=== PATIENT | female | born 1985 | race Two or more races ===

== ENCOUNTER → 2018-04-14 | Emergency (ER) | payer OTHER ==
[~2018-04-14] VITALS: Ht 162.6 cm; Wt 81.6 kg
[~2018-04-14] MED LIST: CEFUROXIME500 MG PO; DOLOGESIC CAPLE1 TAB PO; FOLIC ACID1 MG; KEFLEX500 MG PO; KETO10TA2 PO; LOTRISONE LOTIO30 ML TP; MEDROLPACK PO; NEURONTIN300 MG PO; NIFEDIPINE ER30 M1 PO; PR NATAL 400 C1 EACH; URIN D.S. TABL1 EACH PO
== END | disposition home or self-care (01) ==
LOC: ER 23:54
DX: N39.0 Urinary tract infection, site not specified (principal)

== ENCOUNTER 2018-05-10 10:11 | Emergency (ER) | payer OTHER ==
[~2018-05-10] VITALS: Ht 162.6 cm; Wt 90.7 kg
== END 2018-05-10 14:51 | disposition home or self-care (01) ==
LOC: ER 10:11
DX: O26.851 Spotting complicating pregnancy, first trimester (principal); Z34.01 Encounter for supervision of normal first pregnancy, first trimester

== ENCOUNTER 2021-05-20 09:01 | Emergency (ER) | payer OTHER ==
[~2021-05-20] VITALS: Ht 162.6 cm; Wt 90.7 kg
[2021-05-20] MEDS ORDERED: COZAAR50 MG (10:30)
== END 2021-05-20 14:05 | disposition home or self-care (01) ==
LOC: ER 09:01
DX: Z20.822 Contact with and (suspected) exposure to COVID-19 (principal)

== ENCOUNTER → 2022-01-05 | Emergency (ER) | payer OTHER ==
[~2022-01-05] VITALS: Ht 162.6 cm; Wt 104.3 kg
[~2022-01-05] MED LIST changes: +COZAAR50 MG; +NORFLEX100MG PO
== END | disposition home or self-care (01) ==
LOC: ER 07:52
DX: M25.511 Pain in right shoulder (principal); Z86.79 Personal history of other diseases of the circulatory system

== ENCOUNTER 2022-03-28 00:40 | Emergency (ER) | payer OTHER ==
[~2022-03-28] VITALS: Ht 162.6 cm; Wt 99.8 kg
[2022-03-28] MEDS ORDERED: ZESTRIL5 MG (00:56)
[2022-03-28] MEDS ORDERED: LOSARTAN-HCTZ1 EAC1 PO (22:11)
== END 2022-03-28 06:42 | disposition home or self-care (01) ==
LOC: ER 00:40
DX: I10 Essential (primary) hypertension (principal)

== ENCOUNTER 2022-03-28 18:50 | Emergency (ER) | payer OTHER ==
[~2022-03-28] VITALS: Ht 157.5 cm; Wt 92.5 kg
[~2022-03-28 18:50] MED LIST changes: +ZESTRIL5 MG
[2022-03-28] MEDS ORDERED: LOSARTAN-HCTZ1 EAC1 PO (22:11)
== END 2022-03-28 22:19 | disposition home or self-care (01) ==
LOC: ER 18:50
DX: I10 Essential (primary) hypertension (principal); R00.2 Palpitations

== ENCOUNTER 2023-02-24 03:19 | Emergency (ER) | payer OTHER ==
[~2023-02-24] VITALS: Ht 162.6 cm; Wt 81.6 kg
[~2023-02-24 03:19] MED LIST changes: +LOSARTAN-HCTZ1 EAC1 PO
[2023-02-24] MEDS ORDERED: CARDIZEM30 MG PO (03:56)
== END 2023-02-24 07:22 | disposition home or self-care (01) ==
LOC: ER 03:19
DX: R09.81 Nasal congestion (principal); I10 Essential (primary) hypertension

== ENCOUNTER 2023-10-22 19:34 | Emergency (ER) | payer OTHER ==
[~2023-10-22] VITALS: Ht 162.6 cm; Wt 95.3 kg
[~2023-10-22 19:34] MED LIST changes: +CARDIZEM30 MG PO
== END 2023-10-22 22:09 | disposition home or self-care (01) ==
LOC: ER 19:35
DX: R07.89 Other chest pain (principal); I10 Essential (primary) hypertension

== ENCOUNTER 2024-07-19 13:38 | Emergency (ER) | payer OTHER ==
[~2024-07-19] VITALS: Ht 162.6 cm; Wt 90.7 kg
[2024-07-19 15:24] LABS: HEMOGLOBIN 12.5 g/dL (12.0-15.00); MEAN CELL VOLUME 86.3 fL (80.00-100.00); MEAN CORPUSCULAR HEMOGLOBIN 28.5 pg (27.00-32.0); PLATELET COUNT 238 K/uL (150-450); RED CELL DISTRIBUTION WIDTH 13.5 % (11.5-14.5)
[2024-07-19 15:53] LABS: ALBUMIN 3.6 gm/dL (3.4-5.0); BILIRUBIN TOTAL 0.36 mg/dL (0.3-1.2); CALCIUM 9.2 mg/dL (8.5-10.1); CREATININE SERUM 0.91 mg/dL (0.55-1.02); GFR 69.18; GLOBULINA 3.1 G/DL (2.4-3.5); POTASSIUM 3.03 mEq/L (3.5-5.1); TOTAL PROTEIN 6.7 gm/dL (6.4-8.2)
== END 2024-07-19 16:24 | disposition home or self-care (01) ==
LOC: ER 13:40
PROVIDERS: General Practice
DX: E87.6 Hypokalemia (principal); I10 Essential (primary) hypertension

== ENCOUNTER 2024-10-19 22:38 | Emergency (ER) | payer OTHER ==
[~2024-10-19] VITALS: Ht 162.6 cm; Wt 90.7 kg
[2024-10-20] MEDS ORDERED: ONDANSETRON HCL 2 MG/ML VIAL IV STA (01:24)
[2024-10-20] MEDS ORDERED: FAMOTIDINE/PF 20 MG/2 ML VIAL IV PUSH STA (01:24)
[2024-10-20] MEDS ORDERED: MAG HYDROX/ALUMINUM HYD/SIMETH 30 ML BLIST.PACK PO STA (01:24)
[2024-10-20] MEDS ORDERED: SUCRALFATE 1 G TABLET PO STA (01:25)
[2024-10-20 02:45] LABS: HEMATOCRIT 36.7 % (36.0-45.00); HEMOGLOBIN 12.5 g/dL (12.0-15.00); MEAN CELL VOLUME 83.6 fL (80.00-100.00); MEAN CORPUSCULAR HEMOGLOBIN 28.6 pg (27.00-32.0); MEAN CORPUSCULAR HGB CONC 34.2 g/dl (32.0-36.0); PLATELET COUNT 240 K/uL (150-450); RED BLOOD COUNT 4.39 M/uL (4.00-6.00)
[2024-10-20 02:46] LABS: AMYLASE 40 U/L (25-115); LIPASE 29 U/L (13-75)
[2024-10-20] MEDS ORDERED: PEPCID40 MG PO (03:15)
[2024-10-20] MEDS ORDERED: ZOFRAN8 MG PO (03:15)
[2024-10-20] MEDS ORDERED: PROTONIX40 MG PO (03:15)
== END 2024-10-20 03:34 ==
LOC: ER 22:40
PROVIDERS: General Practice
DX: R10.13 Epigastric pain (principal); R10.9 Unspecified abdominal pain; I10 Essential (primary) hypertension

== ENCOUNTER 2024-10-24 02:29 | Inpatient (IN) | payer OTHER ==
[~2024-10-24] VITALS: Ht 167.6 cm; Wt 99.8 kg
[~2024-10-24 02:29] MED LIST changes: +PEPCID40 MG PO; +PROTONIX40 MG PO; +ZOFRAN8 MG PO
--- NOTE | 2024-10-24 02:54 | NUR ---
SE RECIBE PTE ALERTA Y ORIENTADA LA CUAL REFIERE VENIR POR DOLOR EPIGASTRICO Y CONSTIPACION DESDE HACE VARIOS WOODALL. SE MIDEN S/V A PTE Y SE UBICA.
[2024-10-24] MEDS ORDERED: PROMETHAZINE HCL 50 MG/ML AMPUL IM STA (03:45)
[2024-10-24] MEDS ORDERED: MEPERIDINE HCL/PF 25 MG/ML VIAL IM STA (03:45)
[2024-10-24] MEDS ORDERED: FAMOTIDINE/PF 20 MG/2 ML VIAL IV PUSH STA (03:45)
[2024-10-24 04:26] LABS: HEMATOCRIT 39.5 % (36.0-45.00); HEMOGLOBIN 13.3 g/dL (12.0-15.00); MEAN CELL VOLUME 83.5 fL (80.00-100.00); MEAN CORPUSCULAR HEMOGLOBIN 28.1 pg (27.00-32.0); MEAN CORPUSCULAR HGB CONC 33.7 g/dl (32.0-36.0); PLATELET COUNT 261 K/uL (150-450); RED BLOOD COUNT 4.73 M/uL (4.00-6.00); RED CELL DISTRIBUTION WIDTH 13.6 % (11.5-14.5)
[2024-10-24 05:01] LABS: INR 0.96; PARTIAL THROMBOPLASTIN TIME 28.4 SECONDS (22.0-34.0); PROTHROMBIN TIME 10.5 SECONDS (9.0-11.5)
[2024-10-24 05:05] LABS: ALBUMIN 3.9 gm/dL (3.4-5.0); ALKALINE PHOSPHATASE 84 U/L (50-136); ALT/SGPT 27 U/L (12-78); AMYLASE 34 U/L (25-115); ANION GAP 9 (10.0-20.0); AST/SGOT 17 U/L (15-37); BILIRUBIN TOTAL 0.59 mg/dL (0.3-1.2); BILIRUBIN,CONJUGATED 0.16 mg/dL (0.0-0.2); BILIRUBIN,UNCONJUGATED 0.43 mg/dL (0.0-0.6); BLOOD UREA NITROGEN 13 mg/dL (7-18); BUN CREA RATIO 14 (7.0-25.0); CALCIUM 9.4 mg/dL (8.5-10.1); CARBON DIOXIDE 30 mEq/L (21-32); CHLORIDE 104 mmol/L (98-107); CREATININE SERUM 0.92 mg/dL (0.55-1.02); GFR 68.32; GLOBULINA 3.4 G/DL (2.4-3.5); GLUCOSE FASTING 107 mg/dL (65-100); HCG QUANTITATIVE < 1 mUI/mL (1-3); LIPASE 27 U/L (13-75); OSMOLALITY SERUM 280 MOSM/KG (275-295); POTASSIUM 3.25 mEq/L (3.5-5.1); SODIUM 140 mmol/L (136-145); TOTAL PROTEIN 7.3 gm/dL (6.4-8.2)
--- NOTE | 2024-10-24 05:59 | NUR ---
SE REALIZA LABORATORIOS Y SE ADMIMISTRA TX. SE ORIENTA A PTE QUIEN REFIERE ENTENDER Y ACEPTAR
[2024-10-24] MEDS ORDERED: RINGERS SOLUTION,LACTATED 1,000 ML IV ONE (07:30)
[2024-10-24] MEDS ORDERED: CEFTRIAXONE SODIUM 1,000 MG VIAL IV STA (07:34)
--- NOTE | 2024-10-24 07:53 | NUR ---
SE RECIBE PTE FEMENINA DE 39 YRS ALERTA CONCIENTE Y TRAQUILA. PTE SE LE TATYANA MUESTRA DE ORINA Y SE LE COMIENZA EN ANTIBIOTICO. SE MANTIENE BAJO OBSERVACION.
[2024-10-24 08:14] LABS: PH,URINE 5.5 (5.0-8.0); URINE APPEARANCE Clear; URINE BILIRRUBIN Negative (NEGATIVE); URINE BLOOD Negative; URINE COLOR Yellow; URINE GLUCOSE Negative (NEGATIVE); URINE KETONE Negative (NEGATIVE); URINE LEUKOCYTE Negative; URINE NITRATE Negative; URINE PROTEIN Negative (NEGATIVE); URINE UROBILINOGEN 0.2 E.U./dl
[2024-10-24 08:15] LABS: URINE EPITHELIAL CELLS 59.8 uL (0.0-38.8); URINE WBC 46.2 uL (0.0-23.2)
[2024-10-24 08:18] LABS: URINE CAST 0.14 uL (0.0-1.40)
[2024-10-24] MEDS ORDERED: CEFTRIAXONE SODIUM 2,000 MG in 0.9 % SODIUM CHLORIDE 100 ML IV SCH (13:29)
[2024-10-24] MEDS ORDERED: MORPHINE SULFATE 4 MG/ML VIAL IV PRN (13:30)
[2024-10-24] MEDS ORDERED: ONDANSETRON HCL 4 MG in 0.9 % SODIUM CHLORIDE 50 ML IV PRN (13:30)
[2024-10-24] MEDS ORDERED: LOSARTAN/HYDROCHLOROTHIAZIDE 1 TAB TABLET PO SCH (13:30)
[2024-10-24] MEDS ORDERED: POTASSIUM CHLORIDE IN WATER 100 ML IV NR (13:30)
[2024-10-24] MEDS ORDERED: SODIUM CHLORIDE 0.45 % 1,000 ML IV SCH (13:45)
[2024-10-24] MEDS ORDERED: LOSARTAN/HYDROCHLOROTHIAZIDE 1 TAB TABLET PO NR (14:00)
[2024-10-24 18:54] VITALS: BP 143/68; O2SAT 100
[2024-10-24 20:35] LABS: ALBUMIN 3.6 gm/dL (3.4-5.0); BILIRUBIN TOTAL 0.5 mg/dL (0.3-1.2); CALCIUM 9.1 mg/dL (8.5-10.1); CREATININE SERUM 0.82 mg/dL (0.55-1.02); GFR 78.02; GLOBULINA 3.4 G/DL (2.4-3.5); POTASSIUM 3.39 mEq/L (3.5-5.1)
[2024-10-25 00:23] VITALS: BP 139/81; O2SAT 98
[2024-10-25 08:09] VITALS: BP 140/85; O2SAT 96
[2024-10-25] MEDS ORDERED: LOSARTAN/HYDROCHLOROTHIAZIDE 1 TAB TABLET PO SCH (09:00)
[2024-10-25] MEDS ORDERED: MORPHINE SULFATE 4 MG/ML CARTRIDGE IV PRN (14:15)
[2024-10-25 16:00] VITALS: BP 145/81; O2SAT 100
[2024-10-25] MEDS ORDERED: ONDANSETRON HCL 2 MG/ML VIAL IV PRN (17:00)
[2024-10-25] MEDS ORDERED: MORPHINE SULFATE 4 MG in 0.9 % SODIUM CHLORIDE 9 ML IV PRN (17:00)
[2024-10-25] MEDS ORDERED: MEPERIDINE HCL/PF 25 MG/ML VIAL IV PRN (17:00)
[2024-10-25] MEDS ORDERED: MORPHINE SULFATE 4 MG/ML VIAL IV ONE ×2 (18:15→18:45)
[2024-10-25 19:30] LABS: HEMATOCRIT 39.6 % (36.0-45.00); HEMOGLOBIN 13.1 g/dL (12.0-15.00); MEAN CELL VOLUME 85.2 fL (80.00-100.00); MEAN CORPUSCULAR HEMOGLOBIN 28.1 pg (27.00-32.0); PLATELET COUNT 248 K/uL (150-450); RED BLOOD COUNT 4.65 M/uL (4.00-6.00); RED CELL DISTRIBUTION WIDTH 13.5 % (11.5-14.5)
[2024-10-25 19:49] LABS: CALCIUM 9.3 mg/dL (8.5-10.1); CREATININE SERUM 0.76 mg/dL (0.55-1.02); GFR 85.17; POTASSIUM 3.34 mEq/L (3.5-5.1)
[2024-10-25] MEDS ORDERED: FAMOTIDINE/PF 20 MG/2 ML VIAL IV SCH (21:22)
[2024-10-25 23:58] VITALS: BP 142/86; O2SAT 98
[2024-10-26 08:00] VITALS: BP 152/89; O2SAT 98
[2024-10-26] MEDS ORDERED: ENALAPRILAT DIHYDRATE 1.25 MG/ML VIAL IV SCH (14:05)
[2024-10-26 16:00] VITALS: BP 113/78; O2SAT 95
[2024-10-27 00:27] VITALS: BP 149/83; O2SAT 98
[2024-10-27 08:00] VITALS: BP 142/83; O2SAT 99
[2024-10-27] MEDS ORDERED: ONDANSETRON 4 MG TAB.RAPDIS PO PRN (14:00)
[2024-10-27] MEDS ORDERED: TRAMADOL HCL 50 MG TABLET PO SCH (18:00)
== END 2024-10-27 13:20 | disposition home or self-care (01) | DRG 419 ==
LOC: ER 02:31 → SURH 13:48 → SEC-K 13:48 → SURH 15:54
PROVIDERS: General Practice; Surgery; ADMIT Student in an Organized Health Care Education/Training Program; ATTEND Student in an Organized Health Care Education/Training Program
PROC: BW40ZZZ Ultrasonography of Abdomen (ICD-10-PCS; 2024-10-24)
PROC: 0FT44ZZ Resection of Gallbladder, Percutaneous Endoscopic Approach (ICD-10-PCS; principal; 2024-10-25 16:30)
DX: K80.00 Calculus of gallbladder with acute cholecystitis without obstruction (principal)

== ENCOUNTER 2024-10-30 03:17 | Inpatient (IN) | payer OTHER ==
[~2024-10-30] VITALS: Ht 162.6 cm; Wt 90.7 kg
[2024-10-30] MEDS ORDERED: ONDANSETRON HCL 2 MG/ML VIAL IV ONE (03:45)
[2024-10-30] MEDS ORDERED: KETOROLAC TROMETHAMINE 30 MG VIAL IV ONE (03:45)
[2024-10-30] MEDS ORDERED: 0.9 % SODIUM CHLORIDE 1,000 ML IV SCH (03:45)
[2024-10-30] MEDS ORDERED: KETOROLAC TROMETHAMINE 60 MG VIAL IM ONE (04:03)
[2024-10-30] MEDS ORDERED: ONDANSETRON HCL 2 MG/ML VIAL ONE ×2 (04:03)
[2024-10-30 04:29] LABS: HEMATOCRIT 33.5 % (36.0-45.00); HEMOGLOBIN 11.6 g/dL (12.0-15.00); MEAN CELL VOLUME 82.9 fL (80.00-100.00); MEAN CORPUSCULAR HEMOGLOBIN 28.8 pg (27.00-32.0); MEAN CORPUSCULAR HGB CONC 34.7 g/dl (32.0-36.0); PLATELET COUNT 269 K/uL (150-450); RED BLOOD COUNT 4.04 M/uL (4.00-6.00); RED CELL DISTRIBUTION WIDTH 13.4 % (11.5-14.5)
[2024-10-30 04:43] LABS: ALBUMIN 3.2 gm/dL (3.4-5.0); ALKALINE PHOSPHATASE 90 U/L (50-136); ALT/SGPT 55 U/L (12-78); AMYLASE 29 U/L (25-115); ANION GAP 6 (10.0-20.0); AST/SGOT 27 U/L (15-37); BILIRUBIN TOTAL 0.45 mg/dL (0.3-1.2); BLOOD UREA NITROGEN 10 mg/dL (7-18); BUN CREA RATIO 13 (7.0-25.0); CARBON DIOXIDE 29 mEq/L (21-32); CHLORIDE 105 mmol/L (98-107); GFR 80.27; GLOBULINA 3.5 G/DL (2.4-3.5); GLUCOSE FASTING 102 mg/dL (65-100); OSMOLALITY SERUM 273 MOSM/KG (275-295); POTASSIUM 3.02 mEq/L (3.5-5.1); SODIUM 137 mmol/L (136-145); TOTAL PROTEIN 6.7 gm/dL (6.4-8.2)
[2024-10-30 05:17] LABS: PH,URINE 5.5 (5.0-8.0); URINE APPEARANCE Clear; URINE BILIRRUBIN Negative (NEGATIVE); URINE BLOOD Large; URINE COLOR Dark Yellow; URINE GLUCOSE Negative (NEGATIVE); URINE KETONE Trace (NEGATIVE); URINE LEUKOCYTE Small; URINE NITRATE Negative; URINE PROTEIN 30 (NEGATIVE)
[2024-10-30 05:21] LABS: URINE BACTERIA 79.5 uL (0.0-1933); URINE EPITHELIAL CELLS 40.9 uL (0.0-38.8); URINE WBC 89.8 uL (0.0-23.2)
[2024-10-30 05:26] LABS: BILIRUBIN,CONJUGATED < 0.10 mg/dL (0.0-0.2); BILIRUBIN,UNCONJUGATED 0.35 mg/dL (0.0-0.6)
[2024-10-30 05:27] LABS: LIPASE 35 U/L (13-75)
[2024-10-30] MEDS ORDERED: PIPERACILLIN/TAZOBACTAM SODIUM 3.375 GM in 0.9 % SODIUM CHLORIDE 100 ML IV SCH (07:12)
[2024-10-30] MEDS ORDERED: MEPERIDINE HCL/PF 50 MG/ML VIAL IM PRN (07:15)
[2024-10-30] MEDS ORDERED: ONDANSETRON HCL 2 MG/ML VIAL IV PRN (07:15)
[2024-10-30 14:00] VITALS: BP 136/82; O2SAT 100
[2024-10-30 16:28] VITALS: BP 117/78; O2SAT 96
[2024-10-31 00:29] VITALS: BP 100/58; O2SAT 98
[2024-10-31] MEDS ORDERED: FAMOTIDINE/PF 20 MG/2 ML VIAL IV SCH (09:00)
[2024-10-31] MEDS ORDERED: NICOTINE 21MG/24HR PATCH.TD24 TD SCH (09:00)
[2024-10-31] MEDS ORDERED: POTASSIUM BICARBONATE/CIT AC 25 MEQ TABLET.EFF PO SCH (09:00)
[2024-10-31 10:28] VITALS: BP 138/85; O2SAT 100
[2024-10-31 11:57] LABS: CALCIUM 8.4 mg/dL (8.5-10.1); CREATININE SERUM 0.69 mg/dL (0.55-1.02); GFR 95.22; MAGNESIUM 1.8 mg/dL (1.8-2.4); POTASSIUM 3.43 mEq/L (3.5-5.1)
[2024-10-31 17:00] VITALS: BP 153/88; O2SAT 100
[2024-11-01 01:27] VITALS: BP 139/77; O2SAT 99
[2024-11-01 08:42] VITALS: BP 117/77; O2SAT 95
[2024-11-01] MEDS ORDERED: LOSARTAN/HYDROCHLOROTHIAZIDE 1 UDTAB TABLET PO SCH (09:00)
[2024-11-01] MEDS ORDERED: fentaNYL CITRATE 50 MCG/ML AMPUL IV PUSH ONE (15:00)
[2024-11-01] MEDS ORDERED: MIDAZOLAM HCL 2 MG/2 ML VIAL IV PUSH ONE (15:00)
[2024-11-01 16:00] VITALS: BP 152/82; O2SAT 100
[2024-11-01 17:44] VITALS: BP 178/90; O2SAT 100
[2024-11-01] MEDS ORDERED: ACETAMINOPHEN 500 MG GEL..CAP PO PRN (18:45)
[2024-11-02 00:10] VITALS: BP 119/75; O2SAT 98
[2024-11-02 08:00] VITALS: BP 138/83; O2SAT 97
[2024-11-02] MEDS ORDERED: MORPHINE SULFATE 2 MG/ML CARTRIDGE IV PRN (10:36)
[2024-11-02 16:00] VITALS: BP 132/77; O2SAT 95
[2024-11-03 01:43] VITALS: BP 108/76; O2SAT 99
[2024-11-03 06:43] LABS: HEMATOCRIT 31.5 % (36.0-45.00); HEMOGLOBIN 10.6 g/dL (12.0-15.00); MEAN CELL VOLUME 84.1 fL (80.00-100.00); MEAN CORPUSCULAR HEMOGLOBIN 28.4 pg (27.00-32.0); MEAN CORPUSCULAR HGB CONC 33.7 g/dl (32.0-36.0); PLATELET COUNT 288 K/uL (150-450); RED BLOOD COUNT 3.74 M/uL (4.00-6.00)
[2024-11-03 07:34] LABS: CALCIUM 8.9 mg/dL (8.5-10.1); CREATININE SERUM 0.73 mg/dL (0.55-1.02); GFR 89.22; POTASSIUM 3.38 mEq/L (3.5-5.1)
[2024-11-03 09:39] VITALS: BP 171/94; O2SAT 97
[2024-11-03] MEDS ORDERED: TRAMADOL HCL 50 MG TABLET PO SCH (14:00)
[2024-11-03 16:18] VITALS: BP 155/78; O2SAT 100
[2024-11-04] VITALS: BP 137/83; O2SAT 96
[2024-11-04 08:00] VITALS: BP 159/90; O2SAT 98
[2024-11-04 16:31] VITALS: BP 153/91; O2SAT 96
[2024-11-05 01:23] VITALS: BP 128/80; O2SAT 97
[2024-11-05 08:00] VITALS: BP 128/73; O2SAT 95
[2024-11-05] MEDS ORDERED: ASPIRIN 325 MG TABLET.EC PO PRN (13:30)
[2024-11-05] MEDS ORDERED: ACETAMINOPHEN 325 MG TABLET PO PRN (13:30)
[2024-11-05 16:00] VITALS: BP 133/82; O2SAT 96
[2024-11-06] VITALS: BP 143/80; O2SAT 98
[2024-11-06 08:00] VITALS: BP 140/88; O2SAT 97
[2024-11-06 16:00] VITALS: BP 149/87; O2SAT 98
[2024-11-07 01:06] VITALS: BP 131/71; O2SAT 98
[2024-11-07] MEDS ORDERED: ENALAPRILAT DIHYDRATE 1.25 MG/ML VIAL IV ONE ×2 (16:51→17:00)
== END 2024-11-08 08:17 | disposition home or self-care (01) | DRG 603 ==
LOC: ER 03:20 → SURH 12:24
PROVIDERS: General Practice; ADMIT Student in an Organized Health Care Education/Training Program; ATTEND Student in an Organized Health Care Education/Training Program
PROC: BW21ZZZ Computerized Tomography (CT Scan) of Abdomen and Pelvis (ICD-10-PCS; 2024-10-30)
PROC: 0W9F30Z Drainage of Abdominal Wall with Drainage Device, Percutaneous Approach (ICD-10-PCS; principal; 2024-11-01)
PROC: BW21YZZ Computerized Tomography (CT Scan) of Abdomen and Pelvis using Other Contrast (ICD-10-PCS; 2024-11-07)
PROC: 0WPFX0Z Removal of Drainage Device from Abdominal Wall, External Approach (ICD-10-PCS; 2024-11-07)
DX: L02.211 Cutaneous abscess of abdominal wall (principal); K91.872 Postprocedural seroma of a digestive system organ or structure following a digestive system procedure; K91.870 Postprocedural hematoma of a digestive system organ or structure following a digestive system procedure; E86.0 Dehydration; E87.6 Hypokalemia; R51.9 Headache, unspecified; I10 Essential (primary) hypertension